=== PATIENT | female | born 1970 | race Caucasian/White ===

== ENCOUNTER 2018-08-16 10:26 | Day surgery (SDC) | payer OTHER ==
[2018-08-16 10:44] VITALS: BMI 30.6
[2018-08-16] MEDS ORDERED: Propofol 10 mg/ml Inj (20 ML) ONE (13:38)
[2018-08-16] MEDS ORDERED: Lidocaine Hydrochloride 5 ML INJ ONE (13:39)
[2018-08-16] MEDS ORDERED: HYDROmorphone 0.5 mg/0.5 ml ISec IVP PRN (14:10)
[2018-08-16 15:51] VITALS: RESP 18
[2018-08-16 16:27] VITALS: BP 125/79; PULSE 82; TEMP 98.4; O2SAT 100
--- NOTE | 2018-08-17 00:58 | OP ---
PROCEDURE DATE: 08/16/2018 PREOPERATIVE DIAGNOSES: Thickened endometrium on ultrasound and endometrial polyp. POSTOPERATIVE DIAGNOSES: Thickened endometrium on ultrasound and endometrial polyp with submucosal membrane endometrial polyp. PROCEDURE PERFORMED: Hysteroscopic myomectomy, polypectomy, and dilation and curettage. SURGEON: Alysa Talamantes MD [employer]SEMBLER: None. ANESTHESIA: General LMA. OPERATIVE FINDINGS: Ten weeks' size anteverted uterus, cervical stenosis, bilateral ostia visualized, submucosal mass noted at fundus, approximately 2 cm within the uterine cavity, polypoid tissue noted in close proximity to the left tubal ostia and submucosal mass noted. After the endocervical canal protruding from the inferior wall, approximately 2 cm, resected using MyoSure device. SPECIMEN: Endocervical curetting, endocervical curetting, submucosal myoma, and endometrial polyp. ESTIMATED BLOOD LOSS: 10 mL. BLOOD PRODUCT: None. COMPLICATIONS: None. DESCRIPTION OF PROCEDURE: The patient was taken to the operating room where she was given general anesthesia. Once this was found to be adequate, she was placed on the operating table in the dorsal supine position with legs supported using stirrups. The patient was prepped and draped in the usual sterile fashion. A time-out confirmed correct procedure. Bimanual exam was performed with the above-mentioned findings. Fisher retractor was placed on the anterior and posterior fornix of the vagina. The cervix was adequately visualized. A single-tooth tenaculum was placed on the anterior lip of the cervix. Endocervical curettings were obtained with a Kevorkian curette and sent to pathology on [facility]. The cervix was dilated. Uterus was then sounded. Following this, the hysteroscope was inserted under direct visualization using normal saline as the distention media with the above mentioned findings. MyoSure device was then inserted under direct visualization. Mass was then carefully resected. Fluid deficit of 270 mL. No complications. The hysteroscope was then removed. Gentle curettage was done. The hysteroscope was then reintroduced. MyoSure device then was removed. There was good hemostasis was noted. All instruments were removed. There was good hemostasis at the tenaculum puncture site. At the end of the procedure, all needles, sponge, and instrument counts were noted as correct x2. The patient tolerated the procedure well and was transferred to the recovery room in stable condition. Alysa Talamantes MD [facility] # [id number]
== END 2018-08-16 16:30 | disposition home or self-care (01) ==
LOC: C.SDS 10:26
PROVIDERS: ATTEND Obstetrics & Gynecology
DX: N84.0 Polyp of corpus uteri (principal)
CPT/HCPCS: 58558; 88305; J2704; J3010